=== PATIENT | male | born 1995 | race Caucasian/White ===

== ENCOUNTER 2018-06-06 01:52 | Emergency (ER) | payer SELFPAY ==
--- NOTE | 2018-06-06 02:21 | EDM.PDOC ---
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 He states that he has a tingling sensation in both of his hands and wrists. The pain is constant. It is worse if he is supine , therefore he has been sleeping in a recliner with his arms down. He has also tried a heating pad. He denies neck pain or worsening symptoms with turning his head to the left or right, tipping his chin to his chest, or extending his head backwards. He states that he had similar symptoms about 8 months ago, but then his symptoms improved. No prior medical evaluation for his symptoms. His symptoms have not improved or worsened recently, therefore it is unclear what precipitated him coming to the ED this morning. The patient states that he has been taking 2 tablets of Aleve every 3-4 hours, for the past month, to treat his symptoms. I clarified that it is Aleve that he is taking, not Advil. The patient does not have a PCP. 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 [No Known Home Meds] 06/06/18 [History] Past Medical History Musculoskeletal History: Reports: Fracture (right femur) - Past Surgical History Musculoskeletal Surgical History: Reports: Other (See Below) (Right femur rodding) Social & Family History - Family History Family Medical History: Noncontributory - Tobacco Use Smoking Status *Q: Current Every Day Smoker Years of Tobacco use: 7 Packs/Tins Daily: 0.5 Packs/Tins Daily Comment: Down from 2 ppd - Caffeine Use Caffeine Use: Reports: None - Alcohol Use Alcohol Use History: No - Recreational Drug Use Recreational Drug Use: No - Living Situation & Occupation Living situation: Reports: Single, Alone 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 ED EXAM, GENERAL - Physical Exam Exam: See Below Exam Limited By: No Limitations General Appearance: Alert, WD/WN, No Apparent Distress Eye Exam: Bilateral Eye: EOMI, Normal Inspection Ears: Normal External Exam, Hearing Grossly Normal Nose: Normal Inspection Throat/Mouth: Normal Inspection, Normal Lips, Normal Voice, No Airway Compromise Head: Atraumatic, Normocephalic Neck: Normal Inspection, Supple, Non-Tender, Full Range of Motion. No: Tender Lateral, Tender Midline Respiratory/Chest: No Respiratory Distress, Lungs Clear, Normal Breath Sounds, No Accessory Muscle Use Cardiovascular: Normal Peripheral Pulses, Regular Rate, Rhythm, No Edema, No Gallop, No JVD, No Murmur, No Rub Peripheral Pulses: 4+: Radial (L), Radial (R) GI/Abdominal: Normal Bowel Sounds, Soft, Non-Tender, No Organomegaly, No Distention, No Abnormal Bruit, No Mass (Male) Exam: Deferred Rectal (Males) Exam: Deferred Back Exam: Normal Inspection, Full Range of Motion, NT Extremities: Normal Inspection, Normal Range of Motion, No Pedal Edema, Normal Capillary Refill, Other (Phalen maneuver induces paresthesia within about 20 seconds. Tinel test is positive bilaterally. By history, the hand elevation test is positive. Neurovascular status of both upper extremities is intact.) Neurological: Alert, Oriented, Normal Cognition, No Motor/Sensory Deficits Psychiatric: Normal Affect Skin Exam: Warm, Dry, Intact, Normal Color, No Rash Course - Vital Signs Last Recorded V/S: Last Vital Signs Temp 36.3 C 06/06/18 02:05 Pulse 80 06/06/18 02:05 Resp 19 06/06/18 02:05 BP 122/76 06/06/18 02:05 Pulse Ox 98 06/06/18 02:05 - Orders/Labs/Meds Labs: Laboratory Tests 06/06/18 Range/Units 02:30 Sodium 141 (136-145) mEq/L Potassium 3.9 (3.5-5.1) mEq/L Chloride 105 (98-107) mEq/L Carbon Dioxide 27 (21-32) mEq/L Anion Gap 12.9 (5-15) BUN 20 H (7-18) mg/dL Creatinine 0.9 (0.7-1.3) mg/dL Est Cr Clr Drug Dosing 145.50 mL/min Estimated GFR (MDRD) > 60 (>60) mL/min BUN/Creatinine Ratio 22.2 H (14-18) Glucose 91 (74-106) mg/dL Calcium 8.7 (8.5-10.1) mg/dL - Re-Assessments/Exams Free Text/Narrative Re-Assessment/Exam: 06/06/18 02:20 Clinically, the patient is suffering from bilateral carpal tunnel syndrome. I will refer him to Dr. Quintana for electrodiagnostic testing and potential treatment. For tonight's purposes, I am concerned about the patient's renal function, if it is true that he has been taking 2 tablets of Aleve every 3-4 hours for the past month. I have ordered a BMP. 06/06/18 03:08 The patient's renal function is normal. He is probably taking [id number] ibuprofen. I will recommend an appropriate dosage Departure - Departure Time of Disposition: 03:09 Disposition: Home, Self-Care 01 Condition: Good Clinical Impression: Bilateral carpal tunnel syndrome - Discharge Information *PRESCRIPTION DRUG MONITORING PROGRAM REVIEWED*: Not Applicable *COPY OF PRESCRIPTION DRUG MONITORING REPORT IN PATIENT PAOLA: Not Applicable Referrals: Sy Quintana MD [Physician] - Forms: ED Department Discharge Additional Instructions: You were seen in the emergency room for pain in both of your arms, as well as tingling and numbness of your hands and wrists, for the past month. Workup in the ER included a chemistry panel to check your kidney function, which returned normal. Based on your history and physical examination, you are most likely suffering from bilateral carpal tunnel syndrome, a condition where the nerves running into your hands are getting pinched. You may take [id number] ibuprofen (Advil, Motrin), 2-3 tablets (400-600 mg ) every 8 hours, with food, as needed for discomfort, OR one tablet of over-the- counter naproxen (Aleve) every 12 hours, with food, as needed for discomfort. Do not take both ibuprofen and naproxen. Follow-up with the Orthopedic Surgeon Dr. Sy Quintana at the next available appointment, for further evaluation and treatment. If any other problems, please do not hesitate to return to the ER.
== END 2018-06-06 03:27 | disposition home or self-care (01) ==
LOC: JD.ED 01:52
DX: G56.03 Carpal tunnel syndrome, bilateral upper limbs (principal); F17.210 Nicotine dependence, cigarettes, uncomplicated
CPT/HCPCS: 36415; 80048; 99282; 99283